=== PATIENT | female | born 1960 ===

== ENCOUNTER 2023-03-31 15:02 | Outpatient (REF) | payer OTHER, SELFPAY ==
[2023-03-31 16:15] LABS: MANUAL DIFF FLAG NO
[2023-03-31 16:44] LABS: Basophils Absolute Auto 0.1 X10*3/uL (0.0-0.2); Basophils Percent Auto 0.5 % (0-2); Eosinophils Absolute Auto 0.1 X10*3/uL (0.0-0.4); Eosinophils Percent Auto 0.6 % (0-4); Hematocrit 40.8 % (37.0-47.0); Hemoglobin 13.2 g/dl (12.0-16.0); Imm Gran Abs Auto 0.04 X10*3/uL (0.00-0.03); Imm Gran Pct Auto 0.4 % (0.0-0.4); Lymphocytes Absolute Auto 0.7 X10*3/uL (1.2-4.9); Lymphocytes Percent Auto 6.9 % (20-40); Mean Corpuscular HGB Conc 32.4 g/dl (31.0-35.0); Mean Corpuscular Hemoglobin 28.6 pg (27.0-33.0); Mean Corpuscular Volume 88.3 fL (80.0-98.0); Mean Platelet Volume 11.9 fL (9.4-12.3); Monocytes Percent Auto 9.3 % (2-11); Neutrophils Absolute Auto 8.5 x10*3/uL (2.0-8.3); Neutrophils Percent Auto 82.3 % (45-73); Platelet Count 276 X10*3/uL (160-400); Red Blood Count 4.62 X10*6/uL (4.20-5.50); Red Cell Distribution Width 17.3 % (11.0-16.0); White Blood Count 10.3 X10*3/uL (4.8-10.8)
[2023-03-31 17:25] LABS: Erythrocyte Sedimentation Rate 7 MM/HR (0-20)
[2023-03-31 17:29] LABS: Anion Gap 12 (12-20); Blood Urea Nitrogen 11 mg/dL (9-16); Calcium 9.7 mg/dL (8.4-10.2); Carbon Dioxide 28 mmol/L (22-29); Chloride 104 mmol/L (96-108); Estimated Glomerular Filt Rate > 60; Glucose Random 104 mg/dL (60-115); Potassium 3.7 mmol/L (3.3-5.1); Sodium 140 mmol/L (135-145)
[2023-04-02 04:38] LABS: Immunoglobulin E 17 kU/L (<OR=114)
[2023-04-02 11:32] LABS: Cyclic Citrullinated Peptide <16 UNITS
[2023-04-02 13:23] LABS: Myeloperoxidase Antibody <1.0 AI; Proteinase 3 PR3 Antibodies <1.0 AI
[2023-04-02 15:48] LABS: Anti Nuclear Antibody Screen NEGATIVE (NEGATIVE)
[2023-04-06 16:24] LABS: Asperg fumigatus Precip Abs NEGATIVE (NEGATIVE); Micropoly faeni Abs NEGATIVE (NEGATIVE); Pigeon serum Abs POSITIVE (NEGATIVE); Saccharo pora viridis Abs NEGATIVE (NEGATIVE); Thermo candidus Abs NEGATIVE (NEGATIVE); Thermoa vulgaris #1 NEGATIVE (NEGATIVE)
== END 2023-03-31 15:03 | disposition home or self-care (01) ==
LOC: HO.LAB 15:02
PROVIDERS: Visit Provider Hospitalist
DX: J84.9 Interstitial pulmonary disease, unspecified (principal); R91.8 Other nonspecific abnormal finding of lung field; I34.1 Nonrheumatic mitral (valve) prolapse; J30.9 Allergic rhinitis, unspecified; R06.2 Wheezing
CPT/HCPCS: 36415; 80048; 82785; 85025; 85652; 86003; 86021; 86038; 86200; 86331; 86606; 86609; 94618

== ENCOUNTER 2023-03-31 15:02 | Outpatient (AMB) | payer OTHER, SELFPAY ==
[2023-03-31 15:09] VITALS: BP 118/60; PULSE 92; O2SAT 94; BMI 16.6
--- NOTE | 2023-03-31 15:09 | MHC.OFFVIS ---
Intake Vital Signs 03/31/23 15:09 Height 5 ft 8 in Weight 109 lb BMI 16.6 BP 118/60 Blood Pressure Location Lt brachial Position Sitting Pulse 92 Pulse Source Pulse Oximeter Pulse Oximetry (%) 94 Oxygen Delivery Method Room Air Intake Visit Reasons: ILD Dietitian Assistant Required: No Allergies Contrast Dye Adverse Reaction (Severe, Uncoded 03/31/23 15:13) Anaphylaxis HPI HPI Comments History of Present Illness Details The patient is here for pulmonary evaluation. The patient is a 63 year woman who was previously healthy until the last several months which she started developing increasing progressive dyspnea in addition to nonproductive cough. The symptoms she thought initially related to allergies and she continued to perform her activities of daily living. Ultimately his symptoms worsened. She did follow-up with her primary care doctor who sent her for a CT scan of the chest that she had at [facility]. demonstrated diffuse ground-glass opacities suggesting pneumonitis. Ultimately her symptoms worsened in her primary care doctor suggested she go to the ER. She went to [facility] where she was admitted to the hospital with acute respiratory failure. The patient did have an elevated brain atretic peptide and therefore underwent an echocardiogram demonstrating mitral valve prolapse. She was placed on oxygen. She was placed on Solu-Medrol quickly improved. The repeat CT scan there was suggestive of acute hypersensitivity pneumonitis. As far as exposures she does have 2 parakeets and also a dove that she has been nursing back to health. In addition to that she does have a very she may basement. Denies any musty smells. She denies any smoking or vaping. She was discharged from the hospital and was given a slow prednisone taper. Now she is been off the prednisone since February. She is been noticing that when she goes outside to do the [employer] [place] she started developing a cough and also has been noticing increasing chest tightness. She is concerned that her symptoms are coming back. We did review her CT scan of the chest demonstrating extensive ground-glass opacities throughout. She does have some areas of sparing. Also noted to have some scarring at the bases but no honeycombing. During the visit we did go for brief walking oximetry. The patient initially did desaturate down to about 89 % with activity. However she was talking. I did have her take some deep breaths and ambulate and she was able to maintain a pulse ox of 93% with activity. This is still low but at least she does not qualify for oxygen. Although she is been healthy from a respiratory status. Back in August she did have sinusitis that was the time that she took in the injured dove into the house. She is wondering if it could be related to an illness from the bird. Patient understands and she is been told that the birds do carry increased then there in some people become very hypersensitive to birds which is an issue of concern specially with the progression of fibrosis. will go ahead and start the patient inhaled cortical steroids to see if this provides some relief. Although may not be enough. The patient also have pulmonary function studies and have her repeat a chest x-ray. The patient will undergo blood work and then returned for further evaluation. If her symptoms happened to worsen and she needs to make sure to call for an earlier assessment. [facility] Medical History (Updated 03/31/23 @ 23:13 by Carlton Nobles MD) Mitral valve prolapse ILD (interstitial lung disease) Pneumonitis Social History (Updated 03/31/23 @ 15:14 by DILIP Pratt) Patient Tobacco Use Status: Never used Tobacco Review of Systems Const Denies fatigue and Denies fever(s) Eyes Denies change in vision ENT Reports nasal congestion Card Denies chest pain and Reports dyspnea on exertion Resp Reports cough, Reports dyspnea on exertion and Denies wheezing GI Denies abdominal pain Musc Reports no additional complaints Skin/Breast Denies rash Neuro Reports no additional complaints Endo Denies fatigue Amando/Lymph Denies lymphadenopathy Aller/Immun Denies wheezing Physical Exam Vital Signs: Last Vital Signs Pulse 92 03/31/23 15:09 BP 118/60 03/31/23 15:09 Pulse Ox 94 03/31/23 15:09 Oxygen Delivery Method Room Air 03/31/23 15:09 BMI result Body Mass Index 16.6 Const General: comfortable HEENT Head: Yes normocephalic Neck Neck: Yes supple Chest Chest palpation & inspection: normal inspection of the chest Resp Effort & Inspection: normal respiratory effort Auscultation: rales on the right (fine rales at the end of inspiration) in the mid lung pike and diminished lung sounds Cardio Rate: regular rate Rhythm: regular rhythm Heart sounds: S1 normal heart sound present, S2 normal heart sound present and no murmurs GI Palpation (GI): Soft to palpation Skin General skin exam: no rashes or lesions noted Extrem General: Yes no clubbing, cyanosis or edema Office Procedures 6 Minute Walk Time:: 23:13 SPO2 % at rest: 96 Pulse at rest: 89 SPO2 % during excercise: 89 Pulse during excercise: 93 Distance in yards walked: 300 Christie Score: 4 [id number] - 6 Minute Walk Assessment & Plan Assessment & Plan (1) Pneumonitis: Code(s): J18.9 - Pneumonia, unspecified organism (2) ILD (interstitial lung disease): Code(s): J84.9 - Interstitial pulmonary disease, unspecified (3) Mitral valve prolapse: Code(s): I34.1 - Nonrheumatic mitral (valve) prolapse Plan Bloodwork/ allergy testing Minimize exposure to the birds for now start flovent HFA, may need addiiotnal prednisone if not effective PFTs/CXR F/U with PCP or Cardiology regarding the valvular disease F/U 4 weeks Orders: Orders Complete Blood Count Auto Diff Today J18.9 - Pneumonia, unspecified organism [place] Reflex Titer and Pattern Today J18.9 - Pneumonia, unspecified organism Hypersensitive Pneumonitis Prf Today J18.9 - Pneumonia, unspecified organism, R91.8 - Other nonspecific abnormal finding of lung field PFT pulmonary function test Today J18.9 - Pneumonia, unspecified organism XR chest 2V Today J18.9 - Pneumonia, unspecified organism Basic Metabolic Panel Today J18.9 - Pneumonia, unspecified organism ANCA Vasculitides Today J18.9 - Pneumonia, unspecified organism Cyclic Citrullinated Peptide Today J18.9 - Pneumonia, unspecified organism Erythrocyte Sedimentation Rate Today J18.9 - Pneumonia, unspecified organism Immunoglobulin E Today J18.9 - Pneumonia, unspecified organism Rast Allergen Today J18.9 - Pneumonia, unspecified organism Medications: New fluticasone propionate 220 mcg/actuation (Flovent HFA) 1 puff inhalation BID 12 grams 6RF 30 days J18.9 - Pneumonia, unspecified organism inhalational spacing device (Aerochamber MV spacer) As directed 1 ea 0RF J18.9 - Pneumonia, unspecified organism Coding Level of Care Code New Pt Level 5 (27503) Diagnoses Pneumonitis J18.9 ILD (interstitial lung disease) J84.9 Mitral valve prolapse I34.1 CPT Codes Coding ([id number]) Time Spent (min) 60
[2023-03-31 23:12] VITALS: PULSE 89; O2SAT 96
== END 2023-03-31 15:58 | disposition home or self-care (01) ==
PROVIDERS: Visit Provider Hospitalist
DX: J84.9 Interstitial pulmonary disease, unspecified (principal); I34.1 Nonrheumatic mitral (valve) prolapse
CPT/HCPCS: 94618; 99205

== ENCOUNTER 2023-05-02 14:37 | Outpatient (REF) | payer OTHER, SELFPAY ==
--- NOTE | 2023-05-02 16:38 | PFT_ITS ---
Forced vital capacity 84%, FEV1 89%, FEV1/FVC ratio is 82. XEP80-88 126% and MVV is 95%. Post bronchodilator therapy, there is no significant change. Total lung capacity 74%. Residual volume 65%. Diffusion capacity is 46%. DL/VA 59%. CONCLUSION: There is evidence of mild restrictive pulmonary disorder. No obstructive airway disorder. Diffusion capacity is markedly decreased, sort of out of proportion to the spirometry findings and lung volumes. This may be due to pulmonary emphysema, nonpulmonary factors such as pulmonary vascular disease. Clinical correlation is recommended. Galileo St MD MSB/MODL / [id number]
== END 2023-05-02 14:38 | disposition home or self-care (01) ==
LOC: HO.RESP 14:37
PROVIDERS: Visit Provider Hospitalist
DX: J18.9 Pneumonia, unspecified organism (principal)
CPT/HCPCS: 94010; 94727; 94729

== ENCOUNTER → 2023-05-02 16:38 | Outpatient (BNV) | payer OTHER, SELFPAY | PROVIDERS: Visit Provider Internal Medicine | DX: J18.9 Pneumonia, unspecified organism (principal) | CPT/HCPCS: 94060; 94727; 94729 ==

== ENCOUNTER 2023-05-12 15:39 | Outpatient (AMB) | payer OTHER, SELFPAY ==
[2023-05-12 15:41] VITALS: BP 138/67; PULSE 92; O2SAT 94; BMI 16.1
--- NOTE | 2023-05-12 15:41 | A.OFFVIS_ITS ---
Intake Vital Signs 05/12/23 15:41 Height 5 ft 8 in Weight 105 lb 13.15 oz BMI 16.1 BP 138/67 Blood Pressure Location Rt brachial Position Sitting Pulse 92 Pulse Source Doppler Pulse Oximetry (%) 94 Oxygen Delivery Method Room Air Intake Visit Reasons: ILD Allergies Contrast Dye Adverse Reaction (Severe, Uncoded 03/31/23 15:13) Anaphylaxis HPI HPI Comments History of Present Illness Details The patient is a 63 year woman who was previously healthy until the last several months which she started developing increasing progressive dyspnea in addition to nonproductive cough. The symptoms she thought initially related to allergies and she continued to perform her activities of daily living. Ultimately his symptoms worsened. She did follow-up with her primary care doctor who sent her for a CT scan of the chest that she had at [facility]. demonstrated diffuse ground-glass opacities suggesting pneumonitis. Ultimately her symptoms worsened in her primary care doctor suggested she go to the ER. She went to [facility] where she was admitted to the hospital with acute respiratory failure. The patient did have an elevated brain atretic peptide and therefore underwent an echocardiogram demonstrating mitral valve prolapse. She was placed on oxygen. She was placed on Solu-Medrol quickly improved. The repeat CT scan there was suggestive of acute hypersensitivity pneumonitis. As far as exposures she does have 2 parakeets and also a dove that she has been nursing back to health. In addition to that she does have a very she may basement. Denies any musty smells. She denies any smoking or vaping. She was discharged from the hospital and was given a slow prednisone taper. Now she is been off the prednisone since February. 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 She is concerned that her symptoms are coming back. We did review her CT scan of the chest demonstrating extensive ground-glass opacities throughout. She does have some areas of sparing. Also noted to have some scarring at the bases but no honeycombing. During the visit we did go for brief walking oximetry. The patient initially did desaturate down to about 89 % with activity. However she was talking. I did have her take some deep breaths and ambulate and she was able to maintain a pulse ox of 93% with activity. This is still low but at least she does not qualify for oxygen. Although she is been healthy from a respiratory status. Back in August she did have sinusitis that was the time that she took in the injured dove into the house. She is wondering if it could be related to an illness from the bird. Patient understands and she is been told that the birds do carry increased then there in some people become very hypersensitive to birds which is an issue of concern specially with the progression of fibrosis. will go ahead and start the patient inhaled cortical steroids to see if this provides some relief. Although may not be enough. The patient also have pulmonary function studies and have her repeat a chest x-ray. The patient will undergo blood work and then returned for further evaluation. If her symptoms happened to worsen and she needs to make sure to call for an earlier assessment. 05/12/2023 the patient is here for a pul monary follow-up visit. The prednisone did help her. Now she weaned off. She did undergo pulmonary function studies which we personally reviewed. For some apparent reason appears that the bronchodilator numbers were actually worsen the pre bronchodilator numbers. She appears to have significant small airways disease during the post bronchodilator evaluation. Therefore, I did recommend she avoid using the albuterol inhaler for now on to wean off for sure. She does use the QVAR daily. In addition to that she does have evidence of a mild restrictive lung disease and also evidence of a moderate diffusion impairment. Explained to her that this is all related to the hyper since the pneumonitis resulting from the patient. She still has the patient. She is looking to relocate the patient with separate space. Still being exposed to on the regular basis. She also has parakeets but she is at [place] most of her life. The patient will up her QVAR to twice a day. If she continues to have symptoms she will call me and I will send another course of low-dose prednisone to minimize the inflammatory changes. The patient will also undergo a chest x-ray. Will follow-up in 3 months. [facility] Medical History (Updated 03/31/23 @ 23:13 by Carlton Nobles MD) Mitral valve prolapse ILD (interstitial lung disease) Pneumonitis Social History Patient Tobacco Use Status: Never used Tobacco Review of Systems Const Denies fatigue and Denies fever(s) Eyes Denies change in vision ENT Reports nasal congestion Card Denies chest pain and Reports dyspnea on exertion Resp Reports cough, Reports dyspnea on exertion and Denies wheezing GI Denies abdominal pain Musc Reports no additional complaints Skin/Breast Denies rash Neuro Reports no additional complaints Endo Denies fatigue Amando/Lymph Denies lymphadenopathy Aller/Immun Denies wheezing Physical Exam Vital Signs: Last Vital Signs Pulse 92 05/12/23 15:41 BP 138/67 05/12/23 15:41 Pulse Ox 94 05/12/23 15:41 Oxygen Delivery Method Room Air 05/12/23 15:41 BMI result Body Mass Index 16.1 Const General: comfortable HEENT Head: Yes normocephalic Neck Neck: Yes supple Chest Chest palpation & inspection: normal inspection of the chest Resp Effort & Inspection: normal respiratory effort Auscultation: no rales and diminished lung sounds Cardio Rate: regular rate Rhythm: regular rhythm Heart sounds: S1 normal heart sound present, S2 normal heart sound present and no murmurs GI Palpation (GI): Soft to palpation Skin General skin exam: no rashes or lesions noted Extrem General: Yes no clubbing, cyanosis or edema Results Reviewed Results Reviewed: [address] [address] Pulmonary Function Report Draft Patient: Gabriela Truong MR#: [id number] : 1960 Acct:[id number] Age/Sex: 63 / F ADM Date: 05/02/23 Loc: HO.RESP Attending Dr: Carlton Nobles MD Ordering Physician: Carlton Nobles MD Date of Service: 05/02/23 Procedure(s): PFT pulmonary function test Accession Number(s): [id number] cc: ~ Forced vital capacity 84%, FEV1 89%, FEV1/FVC ratio is 82. VTU09-53 126% and MVV is 95%. Post bronchodilator therapy, there is no significant change. Total lung capacity 74%. Residual volume 65%. Diffusion capacity is 46%. DL/VA 59%. CONCLUSION: There is evidence of mild restrictive pulmonary disorder. No obstructive airway disorder. Diffusion capacity is markedly decreased, sort of out of proportion to the spirometry findings and lung volumes. This may be due to pulmonary emphysema, nonpulmonary factors such as pulmonary vascular disease. Clinical correlation is recommended. Galileo St MD MSB/MODL / [id number] Dictated By: Galileo St MD Signed By: DD/ 1152 TD/TT: 05/03/23 1215 Content Strategist: Assessment & Plan Assessment & Plan (1) Pneumonitis: Code(s): J18.9 - Pneumonia, unspecified organism (2) ILD (interstitial lung disease): Code(s): J84.9 - Interstitial pulmonary disease, unspecified (3) Mitral valve prolapse: Code(s): I34.1 - Nonrheumatic mitral (valve) prolapse Plan Avoid exposure to the birds for now Increase QVAR daily to BID If no better in 2 weeks, will call to restart small low dose prednisone CXR F/U with PCP or Cardiology regarding the valvular disease F/U 8-12 weeks Coding Level of Care Code Est Pt Level 4 (74973) Diagnoses Pneumonitis J18.9 ILD (interstitial lung disease) J84.9 Mitral valve prolapse I34.1 Time Spent (min) 18
== END 2023-05-12 16:24 | disposition home or self-care (01) ==
PROVIDERS: Visit Provider Hospitalist
DX: J84.9 Interstitial pulmonary disease, unspecified (principal); I34.1 Nonrheumatic mitral (valve) prolapse
CPT/HCPCS: 99214

== ENCOUNTER → 2023-05-12 15:39 | Outpatient (BNVA) | payer OTHER, SELFPAY | PROVIDERS: Visit Provider Hospitalist | DX: J18.9 Pneumonia, unspecified organism (principal) ==

== ENCOUNTER 2023-08-11 15:32 | Outpatient (AMB) | payer OTHER, SELFPAY ==
[2023-08-11 15:37] VITALS: PULSE 90; O2SAT 94; BMI 16.1
--- NOTE | 2023-08-11 15:37 | A.OFFVIS_ITS ---
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 The symptoms she thought initially related to allergies and she continued to perform her activities of daily living. Ultimately his symptoms worsened. She did follow-up with her primary care doctor who sent her for a CT scan of the chest that she had at [facility]. demonstrated diffuse ground-glass opacities suggesting pneumonitis. Ultimately her symptoms worsened in her primary care doctor suggested she go to the ER. She went to [facility] where she was admitted to the hospital with acute respiratory failure. The patient did have an elevated brain atretic peptide and therefore underwent an echocardiogram demonstrating mitral valve prolapse. She was placed on oxygen. She was placed on Solu-Medrol quickly improved. The repeat CT scan there was suggestive of acute hypersensitivity pneumonitis. As far as exposures she does have 2 parakeets and also a dove that she has been nursing back to health. In addition to that she does have a very she may basement. Denies any musty smells. She denies any smoking or vaping. She was discharged from the hospital and was given a slow prednisone taper. Now she is been off the prednisone since February. She is been noticing that when she goes outside to do the [employer] she started developing a cough and also has been noticing increasing chest tightness. She is concerned that her symptoms are coming back. We did review her CT scan of the chest demonstrating extensive ground-glass opacities throughout. She does have some areas of sparing. Also noted to have some scarring at the bases but no honeycombing. During the visit we did go for brief walking oximetry. The patient initially did desaturate down to about 89 % with activity. However she was talking. I did have her take some deep breaths and ambulate and she was able to maintain a pulse ox of 93% with activity. This is still low but at least she does not qualify for oxygen. Although she is been healthy from a respiratory status. Back in August she did have sinusitis that was the time that she took in the injured dove into the house. She is wondering if it could be related to an illness from the bird. Patient understands and she is been told that the birds do carry increased then there in some people become very hypersensitive to birds which is an issue of concern specially with the progression of fibrosis. will go ahead and start the patient inhaled cortical steroids to see if this provides some relief. Although may not be enough. The patient also have pulmonary function studies and have her repeat a chest x-ray. The patient will undergo blood work and then returned for further evaluation. If her symptoms happened to worsen and she needs to make sure to call for an earlier assessment. 05/12/2023 the patient is here for a pul monary follow-up visit. The prednisone did help her. Now she weaned off. She did undergo pulmonary function studies which we personally reviewed. For some apparent reason appears that the bronchodilator numbers were actually worsen the pre bronchodilator numbers. She appears to have significant small airways disease during the post bronchodilator evaluation. Therefore, I did recommend she avoid using the albuterol inhaler for now on to wean off for sure. She does use the QVAR daily. In addition to that she does have evidence of a mild restrictive lung disease and also evidence of a moderate diffusion impairment. Explained to her that this is all related to the hyper since the pneumonitis resulting from the patient. She still has the patient. She is looking to relocate the patient with separate space. Still being exposed to on the regular basis. She also has parakeets but she is at [place] most of her life. The patient will up her QVAR to twice a day. If she continues to have symptoms she will call me and I will send another course of low-dose prednisone to minimize the inflammatory changes. The patient will also undergo a chest x-ray. Will follow-up in 3 months. 08/11/2023 the patient is here for a pulmonary follow-up visit. The prednisone did help her significantly. Although now she is off the prednisone her symptoms getting worse. She does not feel the QVAR is hopeful. The patient unfortunately continues have the exposure to the Dove. She also has 2 parakeets. She has a hard time giving way or relocating the birds specially since the very center mental to her and 1 of them is handicapped. 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 The patient states since she can not give of the birds until likely late spring or summer. We again emphasized the need for her to use a respirator working or around the birds. She should keep him 1 area and she should also have a air. the patient understands that if the inflammation persist he can lead to potential fibrosis. Therefore she is agreeable to stay in a small dose of prednisone. I did recommend 20 mg for about 7 days and then hopefully she can taper down to 10 mg for 2 weeks, then, patient can try half a tablet if is the lowest most effective dose. If not she should continue on the 10 mg tablet will follow-up with a CT scan in the coming months. And she will follow-up after the CAT scan to review the CT scan and to assess her symptoms. [facility] Medical History (Updated 08/11/23 @ 20:50 by Carlton Nobles MD) Bird breeder's lung Mitral valve prolapse ILD (interstitial lung disease) Pneumonitis Social History Patient Tobacco Use Status: Never used Tobacco Review of Systems Const Denies fatigue and Denies fever(s) Eyes Denies change in vision ENT Reports nasal congestion Card Denies chest pain and Reports dyspnea on exertion Resp Reports cough, Reports dyspnea on exertion and Denies wheezing GI Denies abdominal pain Musc Reports no additional complaints Skin/Breast Denies rash Neuro Reports no additional complaints Endo Denies fatigue Amando/Lymph Denies lymphadenopathy Aller/Immun Denies wheezing Physical Exam Vital Signs: Last Vital Signs Pulse 90 08/11/23 15:37 Pulse Ox 94 08/11/23 15:37 Oxygen Delivery Method Room Air 08/11/23 15:37 BMI result Body Mass Index 16.1 Const General: comfortable HEENT Head: Yes normocephalic Neck Neck: Yes supple Chest Chest palpation & inspection: normal inspection of the chest Resp Effort & Inspection: normal respiratory effort Auscultation: rales and diminished lung sounds Cardio Rate: regular rate Rhythm: regular rhythm Heart sounds: S1 normal heart sound present, S2 normal heart sound present and no murmurs GI Palpation (GI): Soft to palpation Skin General skin exam: no rashes or lesions noted Extrem General: Yes no clubbing, cyanosis or edema Assessment & Plan Assessment & Plan (1) Pneumonitis: Code(s): J18.9 - Pneumonia, unspecified organism (2) ILD (interstitial lung disease): Code(s): J84.9 - Interstitial pulmonary disease, unspecified (3) Mitral valve prolapse: Code(s): I34.1 - Nonrheumatic mitral (valve) prolapse (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 The patient is not ready to relocate the birds. She will use a repirator around them and use an air purifier in the mean time stop QVAR daily to BID start prednisone 20mg and will taper down to lowest most effective dose repeat CT chest in 2 months F/U with PCP or Cardiology regarding the valvular disease F/U 8-12 weeks Orders: Orders CT chest wo IV con 2 Months J18.9 - Pneumonia, unspecified organism Medications: New prednisone 20 mg (2 x 10 mg) PO DAILY 60 tabs 2RF 30 days Coding Level of Care Code Est Pt Level 4 (09974) Diagnoses Pneumonitis J18.9 ILD (interstitial lung disease) J84.9 Mitral valve prolapse I34.1 Bird breeder's lung J67.2 Time Spent (min) 18
== END 2023-08-11 16:15 | disposition home or self-care (01) ==
PROVIDERS: Visit Provider Hospitalist
DX: J84.9 Interstitial pulmonary disease, unspecified (principal); I34.1 Nonrheumatic mitral (valve) prolapse; J67.2 Bird fancier's lung
CPT/HCPCS: 99214

== ENCOUNTER → 2023-08-11 15:32 | Outpatient (BNVA) | payer OTHER, SELFPAY | PROVIDERS: Visit Provider Hospitalist | DX: J18.9 Pneumonia, unspecified organism (principal) ==

== ENCOUNTER 2023-10-06 16:14 | Outpatient (REF) | payer OTHER, SELFPAY ==
--- NOTE | ~2023-10-06 | CT_ITS ---
EXAMINATION: CT CHEST WITHOUT CONTRAST CLINICAL INFORMATION: Pneumonia COMPARISON: 06/02/23 chest radiograph, 01/13/[address] TECHNIQUE: Multidetector volumetric CT imaging of the chest was done. Axial MIP volume rendering provided. Sagittal and coronal reformatted images were obtained. This CT examination was performed using dose optimization techniques as appropriate, variously including the following: *Automated exposure control *Adjustment of mA and/or kV according to patient size (this includes techniques or standardized protocols for targeted exams where dose is matched to indication/reason for exam; i.e. extremities or head) *Use of iterative reconstruction technique DLP: 113 mGy-cm FINDINGS: BRASS WIND INSTRUMENT MAKER: Clear lungs LUNGS: Trachea and bronchi are patent. Diffuse groundglass opacities seen on 01/13/[address] have resolved. Scattered atelectasis. XIN subpleural granuloma, 7:98. Unchanged 2 mm RUL nodule, 7:280 and on 7:337. MEDIASTINUM: Unremarkable thyroid. Nonspecific lymph nodes. No pathologic lymphadenopathy. Nonenlarged heart. Nonaneurysmal aorta with atherosclerotic calcifications. Nonenlarged pulmonary arteries. CORONARY ARTERY CALCIFICATION: Mild PLEURA: There is no pleural effusion. No pleural mass or thickening. AXILLA: No lymphadenopathy. UPPER ABDOMEN: 5 mm nonobstructing left mid pole renal calculus. OSSEOUS STRUCTURES: Unremarkable. CT/CT chest wo IV con IMPRESSION: Resolution bilateral groundglass opacities. No change tiny pulmonary nodules for which no further follow-up necessarily recommended. No new or enlarging pulmonary nodules. 5 mm nonobstructing left midpole renal calculus. Fleischner guidelines were followed.
== END 2023-10-06 16:15 | disposition home or self-care (01) ==
LOC: HO.CT 16:14
PROVIDERS: Visit Provider Hospitalist
DX: J18.9 Pneumonia, unspecified organism (principal)
CPT/HCPCS: 71250

== ENCOUNTER 2023-12-19 14:23 | Outpatient (AMB) | payer OTHER, SELFPAY ==
--- NOTE | 2023-12-19 14:29 | MHC.OFFVIS ---
Vital Signs 12/19/23 14:30 Height 5 ft 8 in Weight 114 lb BMI 17.3 Pulse 81 Pulse Source Pulse Oximeter Pulse Oximetry (%) 94 Oxygen Delivery Method Room Air Intake Visit Reasons: dyspnea Gang Supervisor Required: No Allergies Contrast Dye Adverse Reaction (Severe, Uncoded 12/19/23 14:31) Anaphylaxis HPI Comments Details: The patient is a 63 year woman who was previously healthy until the last several months which she started developing increasing progressive dyspnea in addition to nonproductive cough. The symptoms she thought initially related to allergies and she continued to perform her activities of daily living. Ultimately his symptoms worsened. She did follow-up with her primary care doctor who sent her for a CT scan of the chest that she had at [facility]. demonstrated diffuse ground-glass opacities suggesting pneumonitis. Ultimately her symptoms worsened in her primary care doctor suggested she go to the ER. She went to [facility] where she was admitted to the hospital with acute respiratory failure. The patient did have an elevated brain atretic peptide and therefore underwent an echocardiogram demonstrating mitral valve prolapse. She was placed on oxygen. She was placed on Solu-Medrol quickly improved. The repeat CT scan there was suggestive of acute hypersensitivity pneumonitis. As far as exposures she does have 2 parakeets and also a dove that she has been nursing back to health. In addition to that she does have a very she may basement. Denies any musty smells. She denies any smoking or vaping. She was discharged from the hospital and was given a slow prednisone taper. Now she is been off the prednisone since February. She is been noticing that when she goes outside to do the [place] she started developing a cough and also has been noticing increasing chest tightness. She is concerned that her symptoms are coming back. We did review her CT scan of the chest demonstrating extensive ground-glass opacities throughout. She does have some areas of sparing. Also noted to have some scarring at the bases but no honeycombing. During the visit we did go for brief walking oximetry. The patient initially did desaturate down to about 89 % with activity. However she was talking. I did have her take some deep breaths and ambulate and she was able to maintain a pulse ox of 93% with activity. This is still low but at least she does not qualify for oxygen. Although she is been healthy from a respiratory status. Back in August she did have sinusitis that was the time that she took in the injured dove into the house. She is wondering if it could be related to an illness from the bird. Patient understands and she is been told that the birds do carry increased then there in some people become very hypersensitive to birds which is an issue of concern specially with the progression of fibrosis. will go ahead and start the patient inhaled cortical steroids to see if this provides some relief. Although may not be enough. The patient also have pulmonary function studies and have her repeat a chest x-ray. The patient will undergo blood work and then returned for further evaluation. If her symptoms happened to worsen and she needs to make sure to call for an earlier assessment. 05/12/2023 the patient is here for a pulmonary follow-up visit. The prednisone did help her. Now she weaned off. She did undergo pulmonary function studies which we personally reviewed. For some apparent reason appears that the bronchodilator numbers were actually worsen the pre bronchodilator numbers. She appears to have significant small airways disease during the post bronchodilator evaluation. Therefore, I did recommend she avoid using the albuterol inhaler for now on to wean off for sure. She does use the QVAR daily. In addition to that she does have evidence of a mild restrictive lung disease and also evidence of a moderate diffusion impairment. Explained to her that this is all related to the hyper since the pneumonitis resulting from the patient. She still has the patient. She is looking to relocate the patient with separate space. Still being exposed to on the regular basis. She also has parakeets but she is at [facility] most of her life. The patient will up her QVAR to twice a day. If she continues to have symptoms she will call me and I will send another course of low-dose prednisone to minimize the inflammatory changes. The patient will also undergo a chest x-ray. Will follow-up in 3 months. 08/11/2023 the patient is here for a pulmonary follow-up visit. The prednisone did help her significantly. Although now she is off the prednisone her symptoms getting worse. She does not feel the QVAR is hopeful. The patient unfortunately continues have the exposure to the Dove. She also has 2 parakeets. She has a hard time giving way or relocating the birds specially since the very center mental to her and 1 of them is handicapped. 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 The patient states since she can not give of the birds until likely late spring or summer. We again emphasized the need for her to use a respirator working or around the birds. She should keep him 1 area and she should also have a air. the patient understands that if the inflammation persist he can lead to potential fibrosis. Therefore she is agreeable to stay in a small dose of prednisone. I did recommend 20 mg for about 7 days and then hopefully she can taper down to 10 mg for 2 weeks, then, patient can try half a tablet if is the lowest most effective dose. If not she should continue on the 10 mg tablet will follow-up with a CT scan in the coming months. And she will follow-up after the CAT scan to review the CT scan and to assess her symptoms. 12/19/2023 the patient is here for a pulmonary follow-up visit. The patient was fairly well until she was exposed to significant amount of patient droppings and then there. Apparently she was evaluating home for her patient when the patient was exposed to an open cage with significant amount of dander. After that she started developing some chest tightness heaviness and chest congestion. She felt the crackles in the crepitations of her lungs. She did call the office in the patient ultimately started prednisone. Although the prednisone help with her breathing cause her some GI adverse effects some reflux symptoms and some GI upset. The patient now is taking prednisone 10 mg daily. Seems like the crepitations are significantly better. Although, she is concerned about lowering of the lungs. The patient is motivated to find a home for the patient. In the meantime we will try to decrease prednisone some specially since her respiratory exam is reassuring. She still has some minimal crackles in the right base. We can try to decrease it to 10 mg every other day to try to minimize some of the GI adverse effects. [facility]. She did have a CT scan back in September which is reassuring so therefore believe that we need to do any additional imaging right now. In addition to the chest tightness the patient did describe some congestion. Therefore would not be unreasonable just to treat her for psittacosis with some doxycycline. [facility], [facility] Medical History (Updated 08/11/23 @ 20:50 by Carlton Nobles MD) Bird breeder's lung Mitral valve prolapse ILD (interstitial lung disease) Pneumonitis Social History Patient Tobacco Use Status: Never used Tobacco Review of Systems Const Denies fatigue and Denies fever(s) Eyes Denies change in vision ENT Reports nasal congestion Card Denies chest pain and Reports dyspnea on exertion Resp Reports cough, Reports dyspnea on exertion and Denies wheezing GI Denies abdominal pain Musc Reports no additional complaints Skin/Breast Denies rash Neuro Reports no additional complaints Endo Denies fatigue Amando/Lymph Denies lymphadenopathy Aller/Immun Denies wheezing Physical Exam Vital Signs: Last Vital Signs Pulse 81 12/19/23 14:30 Pulse Ox 94 12/19/23 14:30 Oxygen Delivery Method Room Air 12/19/23 14:30 BMI result Body Mass Index 17.3 Const General: comfortable HEENT Head: Yes normocephalic Neck Neck: Yes supple Chest Chest palpation & inspection: normal inspection of the chest Resp Effort & Inspection: normal respiratory effort Auscultation: rales and diminished lung sounds Cardio Rate: regular rate Rhythm: regular rhythm Heart sounds: S1 normal heart sound present, S2 normal heart sound present and no murmurs GI Palpation (GI): Soft to palpation Skin General skin exam: no rashes or lesions noted Extrem General: Yes no clubbing, cyanosis or edema Assessment & Plan Assessment & Plan (1) Pneumonitis: Code(s): J18.9 - Pneumonia, unspecified organism Category: Medical (2) ILD (interstitial lung disease): Code(s): J84.9 - Interstitial pulmonary disease, unspecified Category: Medical (3) Mitral valve prolapse: Code(s): I34.1 - Nonrheumatic mitral (valve) prolapse Category: Medical (4) Bird breeder's lung: Code(s): J67.2 - Bird fancier's lung Category: Medical Plan Avoid exposure to the birds. The patient is not ready to relocate the birds. She will use a repirator around them and use an air purifier in the mean time stopped QVAR decrease prednisone 10mg QOD start Doxycycline start PEpcid as needed F/U with PCP or Cardiology regarding the valvular disease F/U 8-12 weeks Medications: New doxycycline hyclate 100 mg PO BID 28 caps 0RF 14 days famotidine (Pepcid) 40 mg PO BEDTIME 30 tabs 2RF 30 days Coding Level of Care Code Est Pt Level 4 (60251) Diagnoses Pneumonitis J18.9 ILD (interstitial lung disease) J84.9 Mitral valve prolapse I34.1 Bird breeder's lung J67.2 Time Spent (min) 17
[2023-12-19 14:30] VITALS: PULSE 81; O2SAT 94; BMI 17.3
== END 2023-12-19 14:54 | disposition home or self-care (01) ==
PROVIDERS: Visit Provider Hospitalist
DX: J18.9 Pneumonia, unspecified organism (principal); I34.1 Nonrheumatic mitral (valve) prolapse
CPT/HCPCS: 99214

== ENCOUNTER → 2023-12-19 14:23 | Outpatient (BNVA) | payer OTHER, SELFPAY | PROVIDERS: Visit Provider Hospitalist ==

== ENCOUNTER 2024-04-23 14:47 | Outpatient (AMB) | payer OTHER, SELFPAY ==
[2024-04-23 14:54] VITALS: BP 128/70; PULSE 61; O2SAT 96; BMI 17.5
--- NOTE | 2024-04-23 14:54 | MHC.OFFVIS ---
Vital Signs 04/23/24 14:54 Height 5 ft 8 in Weight 114 lb 13.773 oz BMI 17.5 BP 128/70 Blood Pressure Location Lt brachial Position Sitting Pulse 61 Pulse Source Pulse Oximeter Pulse Oximetry (%) 96 Oxygen Delivery Method Room Air Intake Visit Reasons: Dyspnea Geological Scout Required: No Allergies Contrast Dye Adverse Reaction (Severe, Uncoded 04/23/24 14:56) Anaphylaxis HPI Comments Details: The patient is a 64 year woman who was previously healthy until the last several months which she started developing increasing progressive dyspnea in addition to nonproductive cough. The symptoms she thought initially related to allergies and she continued to perform her activities of daily living. Ultimately his symptoms worsened. She did follow-up with her primary care doctor who sent her for a CT scan of the chest that she had at [facility]. demonstrated diffuse ground-glass opacities suggesting pneumonitis. Ultimately her symptoms worsened in her primary care doctor suggested she go to the ER. She went to [facility] where she was admitted to the hospital with acute respiratory failure. The patient did have an elevated brain atretic peptide and therefore underwent an echocardiogram demonstrating mitral valve prolapse. She was placed on oxygen. She was placed on Solu-Medrol quickly improved. The repeat CT scan there was suggestive of acute hypersensitivity pneumonitis. As far as exposures she does have 2 parakeets and also a dove that she has been nursing back to health. In addition to that she does have a very she may basement. Denies any musty smells. She denies any smoking or vaping. She was discharged from the hospital and was given a slow prednisone taper. Now she is been off the prednisone since February. She is been noticing that when she goes outside to do the [employer] she started developing a cough and also has been noticing increasing chest tightness. She is concerned that her symptoms are coming back. We did review her CT scan of the chest demonstrating extensive ground-glass opacities throughout. She does have some areas of sparing. Also noted to have some scarring at the bases but no honeycombing. During the visit we did go for brief walking oximetry. The patient initially did desaturate down to about 89 % with activity. However she was talking. I did have her take some deep breaths and ambulate and she was able to maintain a pulse ox of 93% with activity. This is still low but at least she does not qualify for oxygen. Although she is been healthy from a respiratory status. Back in August she did have sinusitis that was the time that she took in the injured dove into the house. She is wondering if it could be related to an illness from the bird. Patient understands and she is been told that the birds do carry increased then there in some people become very hypersensitive to birds which is an issue of concern specially with the progression of fibrosis. will go ahead and start the patient inhaled cortical steroids to see if this provides some relief. Although may not be enough. The patient also have pulmonary function studies and have her repeat a chest x-ray. The patient will undergo blood work and then returned for further evaluation. If her symptoms happened to worsen and she needs to make sure to call for an earlier assessment. 05/12/2023 the patient is here for a pulmonary follow-up visit. The prednisone did help her. Now she weaned off. She did undergo pulmonary function studies which we personally reviewed. For some apparent reason appears that the bronchodilator numbers were actually worsen the pre bronchodilator numbers. She appears to have significant small airways disease during the post bronchodilator evaluation. Therefore, I did recommend she avoid using the albuterol inhaler for now on to wean off for sure. She does use the QVAR daily. In addition to that she does have evidence of a mild restrictive lung disease and also evidence of a moderate diffusion impairment. Explained to her that this is all related to the hyper since the pneumonitis resulting from the patient. She still has the patient. She is looking to relocate the patient with separate space. Still being exposed to on the regular basis. She also has parakeets but she is at [employer] most of her life. The patient will up her QVAR to twice a day. If she continues to have symptoms she will call me and I will send another course of low-dose prednisone to minimize the inflammatory changes. The patient will also undergo a chest x-ray. Will follow-up in 3 months. 08/11/2023 the patient is here for a pulmonary follow-up visit. The prednisone did help her significantly. Although now she is off the prednisone her symptoms getting worse. She does not feel the QVAR is hopeful. The patient unfortunately continues have the exposure to the Dove. She also has 2 parakeets. She has a hard time giving way or relocating the birds specially since the very center mental to her and 1 of them is handicapped. 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 The patient states since she can not give of the birds until likely late spring or summer. We again emphasized the need for her to use a respirator working or around the birds. She should keep him 1 area and she should also have a air. the patient understands that if the inflammation persist he can lead to potential fibrosis. Therefore she is agreeable to stay in a small dose of prednisone. I did recommend 20 mg for about 7 days and then hopefully she can taper down to 10 mg for 2 weeks, then, patient can try half a tablet if is the lowest most effective dose. If not she should continue on the 10 mg tablet will follow-up with a CT scan in the coming months. And she will follow-up after the CAT scan to review the CT scan and to assess her symptoms. 12/19/2023 the patient is here for a pulmonary follow-up visit. The patient was fairly well until she was exposed to significant amount of patient droppings and then there. Apparently she was evaluating home for her patient when the patient was exposed to an open cage with significant amount of dander. After that she started developing some chest tightness heaviness and chest congestion. She felt the crackles in the crepitations of her lungs. She did call the office in the patient ultimately started prednisone. Although the prednisone help with her breathing cause her some GI adverse effects some reflux symptoms and some GI upset. The patient now is taking prednisone 10 mg daily. Seems like the crepitations are significantly better. Although, she is concerned about lowering of the lungs. The patient is motivated to find a home for the patient. In the meantime we will try to decrease prednisone some specially since her respiratory exam is reassuring. She still has some minimal crackles in the right base. We can try to decrease it to 10 mg every other day to try to minimize some of the GI adverse effects. I also give from [facility] that she can take as needed. She did have a CT scan back in September which is reassuring so therefore believe that we need to do any additional imaging right now. In addition to the chest tightness the patient did describe some congestion. Therefore would not be unreasonable just to treat her for psittacosis with some doxycycline. 04/23/2024 the patient is here for a pulmonary follow-up visit. Overall she is doing okay from a respiratory status. She has been off the prednisone which is reassuring. The patient now does not have the patient in her home. She did place group home. She does visit the patient regularly. At times she is concerned about the care and she would like to take the patient back home. She understands however she has a very serious hypersensitivity reaction to the patient and is extremely dangerous to do so. I did reassure her that a lot of the hyper sensitivity changes are pneumonitis. No significant scarring that has evolved. We did go for brief walking oximetry today and her oxygen levels are excellent. Denies any wheezing or any significant coughing at this time. [facility] Medical History (Updated 04/26/24 @ 22:35 by Carlton Nobles MD) Pulmonary nodule Bird breeder's lung Mitral valve prolapse ILD (interstitial lung disease) Pneumonitis Social History Patient Tobacco Use Status: Never used Tobacco Review of Systems Const Denies fatigue and Denies fever(s) Eyes Denies change in vision ENT Reports nasal congestion Card Denies chest pain and Denies dyspnea on exertion Resp Reports cough, Denies dyspnea on exertion and Denies wheezing GI Denies abdominal pain Musc Reports no additional complaints Skin/Breast Denies rash Neuro Reports no additional complaints Endo Denies fatigue Amando/Lymph Denies lymphadenopathy Aller/Immun Denies wheezing Physical Exam Vital Signs: Last Vital Signs Pulse 61 04/23/24 14:54 BP 128/70 04/23/24 14:54 Pulse Ox 96 04/23/24 14:54 Oxygen Delivery Method Room Air 04/23/24 14:54 BMI result Body Mass Index 17.5 Const General: comfortable HEENT Head: Yes normocephalic Neck Neck: Yes supple Chest Chest palpation & inspection: normal inspection of the chest Resp Effort & Inspection: normal respiratory effort Auscultation: no rales and diminished lung sounds Cardio Rate: regular rate Rhythm: regular rhythm Heart sounds: S1 normal heart sound present, S2 normal heart sound present and no murmurs GI Palpation (GI): Soft to palpation Skin General skin exam: no rashes or lesions noted Extrem General: Yes no clubbing, cyanosis or edema Assessment & Plan Assessment & Plan (1) Pneumonitis: Code(s): J18.9 - Pneumonia, unspecified organism Category: Medical (2) ILD (interstitial lung disease): Code(s): J84.9 - Interstitial pulmonary disease, unspecified Category: Medical (3) Mitral valve prolapse: Code(s): I34.1 - Nonrheumatic mitral (valve) prolapse Category: Medical (4) 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 The patient is not ready to relocate the birds. She will use a repirator around them and use an air purifier in the mean time stopped QVAR stopped prednisone 10mg QOD F/U with PCP or Cardiology regarding the valvular disease CT chest in 6 months F/U 6 months Orders: Orders CT chest wo IV con 3 Months J18.9 - Pneumonia, unspecified organism, J84.9 - Interstitial pulmonary disease, unspecified, R91.1 - Solitary pulmonary nodule Coding Level of Care Code Est Pt Level 4 (09882) Complex EM visit Add On G2211 Diagnoses Pneumonitis J18.9 ILD (interstitial lung disease) J84.9 Mitral valve prolapse I34.1 Bird breeder's lung J67.2 Pulmonary nodule R91.1 Time Spent (min) 18
== END 2024-04-23 15:18 | disposition home or self-care (01) ==
PROVIDERS: Visit Provider Hospitalist
DX: J18.9 Pneumonia, unspecified organism (principal); I34.1 Nonrheumatic mitral (valve) prolapse; J67.2 Bird fancier's lung; R91.1 Solitary pulmonary nodule
CPT/HCPCS: 99214

== ENCOUNTER → 2024-04-23 14:47 | Outpatient (BNVA) | payer OTHER, SELFPAY | PROVIDERS: Visit Provider Hospitalist ==

== ENCOUNTER 2024-09-27 15:02 | Outpatient (REF) | payer OTHER, SELFPAY ==
--- NOTE | ~2024-09-27 | CT_ITS ---
CLINICAL HISTORY: R91.1 - Solitary pulmonary nodule CT chest without contrast Comparison: Chest CT from 10/06/2023 Findings: 4 mm solid pulmonary nodule (new from comparison) is in the left lower lobe imaged 141 of series 6 (category 3) Calcified nodule measures 3 mm is unchanged laterally in the left upper lobe, image 56 of series 6 (category 2). Redemonstration of the mild to moderate emphysematous changes and mild peripheral scarring. No pneumothorax or pleural effusion mild-moderate coronary artery calcifications, with mild cardiomegaly. Nonenlarged mediastinal lymphadenopathy. No significant change of the imaged upper abdomen. Degenerative changes include imaged shoulders and imaged spine. IMPRESSION: 1. Mild increase in size of the now 4 mm (141 of series 6) pulmonary nodule in the left lower lobe. Recommend six-month follow-up chest CT. 2. Mild-moderate emphysematous changes are redemonstrated This document has been electronically signed by: Jesus Kaplan MD on 09/29/2024 02:49:55
--- OUTSIDE RECORDS SUMMARY | 2024-09-27 17:35 | XMS_ITS | Data Portability ---
Author Organization [place] - [employer] [facility], autoContract - [facility] Address [address] [place] [id number] Assessment No assessment recorded. Plan of Treatment Reminders Order Date Submit Date Provider Last Modified By Organization Details Last Modified Time Details Appointments None record ed. Lab None record ed. Referral None record ed. Procedures None record ed. Surgeries None record ed. Imaging None record ed. Medication Orders None record ed. Patient TargetsNo targets recorded. Patient InstructionsNo instructions recorded. Reason for Referral None Reported. 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 Medical Equipment None Reported. Medications Name Sig Start Date Stop Date Status Note LastModified by Organization Details LastModified Time prednisone 10 mg tablet TAKE 2 TABLETS BY MOUTH DAILY FOR 30 DAYS 08/06 completed Not Available Not Available Not Available doxycycline hyclate 100 mg capsule TAKE 1 CAPSULE BY MOUTH TWICE A DAY FOR 14 DAYS 08/06 completed Not Available Not Available Not Available famotidine 40 mg tablet TAKE 1 TABLET BY MOUTH EVERYDAY AT BEDTIME 08/06 completed Not Available Not Available Not Available omeprazole 40 mg capsule,del ayed release TAKE 1 CAPSULE BY MOUTH TWICE A DAY 08/06 completed Not Available Not Available Not Available Vitals None Recorded Social History None recorded. Functional Status None recorded. Mental Status None recorded. Family History Nothing Reported. Medical History No medical history recorded. Gynecological HistoryNo gynecological history recorded. Obstetrics History GPAL:G 0 P 0 0 0 0 Immunizations Vaccine Type Date Status Note Provider Nam e and Address Organization Details Recorded Time Td (adult), 2 Lf tetanus toxoid, preservative free, adsorbed 6 completed Not Available [facility] 08/23/2024 11:41:04 Past Encounters Encounter ID Performer Location Encounter Start Date Encounter Closed Date Diagnosis/Indication Diagnosis SNOMED-CT Code Diagnosis ICD10 Code Diagnosis Note [id number] Garima Watt APRN [id number] A_PCP [address] [place] [id number] 08/06/2024 14:10:48 08/06/2024 14:50:46 Health Concerns Section Related Observation LastModified by Organization Detai ls LastModified Time None Recorded Concern Status LastModified by Organization Details LastModified Time None Recorded Advance Directives Directive None Recorded Payers Encounter Date Sequence Insurance Name Policy Number Policy Pedraza Covered Member ID Pedraza Member ID Guarantor Name 08/06/2024 1 [facility] [id number] Gabriela Dietrich Alexi [id number] Gabriela Truong OBGyn Episode No OBEpisode recorded.
--- OUTSIDE RECORDS SUMMARY | 2024-09-27 17:35 | XMS_ITS | Clinical Summary ---
Author Organization [facility] [address] [facility] Building Address [address] [place] [address] Phone Care Team Providers Care Back Shoe Operator Name Role Phone Garima Watt SENIA Primary Care Provider [phone] Allergies No known active allergies Medications nut.tx.comp. immune systm,reg (NUTRITIONAL SUPPLEMENTS PO) Take by mouth. Active omeprazole (PriLOSEC) [address] capsule TAKE 1 CAPSULE BY MOUTH EVERY DAY BEFORE A MEAL 01/18/2023 Active Active Problems Problem Noted Date Diagnosed Date Hypersensitivity pneumonitis 02/14/2023 Interstitial lung disease 02/14/2023 Immunizations Name Administration Dates Next Due Td Tetanus diptheria (Tdvax) 7yo and older 04/13 Surgical History Surgery Date Site/Laterality Comments OTHER SURGICAL HISTORY 11/06/10 PROCEDURE: HISTORICAL SUPRACERVICAL HYSTERECTOMY W/O BSO; COMMENT: Uterine fibroid, Dr. Starks COLONOSCOPY 09/05/10 PROCEDURE: HISTORICAL COLONOSCOPY; COMMENT: Hemorrhoids, repeat [address] Casey. Medical History Medical History Date Comments Hypertension 12/24/2013 DX:Hypertension; COMMENT: Echo 06/07/13, normal study with normal LV size and function and no valvular heart disease, EKG 05/07/[address] T changes, treadmill exercise test 07/05/13 negative for angina but positive by EKG criteria for ischemia without arrhythmia, good exercise capacity Nuclear stress scan 07/19/13, results not in transferred records, 05/07/13: Urinary catecholamin* Family History Medical History Relation Name Comments Hypertension Father Stroke Father Depression Mother Hypertension Mother Stroke Mother Thyroid disease Mother Thyroid disease Sister 1 Depression Sister 2 Relation Name Status Comments Father Mother Sister 1 Sister 2 Sister 3 Social History Tobacco Use Types Packs/Day Years Used Date Smoking Tobacco: Never Smokeless Tobacco: Never Alcohol Use Standard Drinks/Week Comments Yes 0 (1 standard drink = 0.6 oz pur e alcohol) Comments Unknown Sex and Gender Information Value Date Recorded Sex Assigned at Not on file Legal Sex Female 5:29 PM EST Gender Identity Not on file Sexual Orientation Not on file Obstetrics History Last Filed Vital Signs Vital Sign Reading Time Taken Comments Blood Pressure 110/74 02/14/2023 2:16 PM EDT Pulse 102 02/14/2023 2:10 PM EDT Temperature - - Respiratory Rate - - Oxygen Saturation - - Inhaled Oxygen Concentration - - Weight 49.9 kg (110 lb) 02/14/2023 2:16 PM EDT Height 172.7 cm (5' 8 ) 01/10/2023 10:32 AM EDT Body Mass Index 16.73 01/10/2023 10:32 AM EDT Plan of Treatment Upcoming Encounters Date Type Department Care Team (Late st Contact Info) Description 11/29/2024 3:00 PM EDT Office Visit Internal Medicine - [facility] [address] [place] [address] Lalita Javier PA [address] [place] [address] Health Maintenance Due Date Last Done Comments Breast Cancer Screening 1960 Pneumococcal Vaccine: 50+ Years (1 of 1 - PCV) 2009 Zoster Vaccines (1 of 2) 2009 Cervical Cancer Screening: P ap Smear 11/11/2015 11/10/2012, 11/10/2012 DTaP,Tdap,and Td Vaccines (2 - Td or Tdap) 04/13/2016 04/13/2006 Cholesterol Screening (Lipid Panel) 08/17/2023 Colorectal Cancer Screening: Colonoscopy 08/17/2023 Depression Screening 08/17/2023 Hepatitis C Screening 08/17/2023 Hypertension/CHF/CAD Annual BMP Blood Test 08/17/2023 Osteoporosis Screening (Bone Density Screening) 08/17/2023 Social Influencers of Health Screening 08/17/2023 Falls Risk Assessment 01/30/2024 COVID-19 Vaccine ( - 2023-2 5 season) 2024 Influenza Vaccine (#1) 2024 RSV Immunization Patients 60 + Years Old (1 - 1-dose 75+ series) 2034 HIB Vaccines Aged Out No longer eligi ble based on patient's age to complete this topic HPV Vaccines Aged Out No longer eligi ble based on patient's age to complete this topic Hepatitis A Vaccines Aged Out No long er eligible based on patient's age to complete this topic Hepatitis B Vaccines Aged Out No long er eligible based on patient's age to complete this topic IPV Vaccines Aged Out No longer eligi ble based on patient's age to complete this topic MMR Vaccines Aged Out No longer eligi ble based on patient's age to complete this topic Meningococcal ACWY Vaccine Aged Out N o longer eligible based on patient's age to complete this topic Meningococcal B Vacine Aged Out No lo nger eligible based on patient's age to complete this topic Pneumococcal Vaccine: Pediatrics (0 to 5 Years) and At-Risk Patients (6 to 64 Years) Aged Out No longer eligible b ased on patient's age to complete this topic RSV Immunization Patients Under 20 months Aged Out No longer eligible b ased on patient's age to complete this topic Varicella Vaccines Aged Out No longer eligible based on patient's age to complete this topic Procedures Procedure Name Priority Date/Time Associated Diagnosis Comments HPV Routine 11/10/2012 from Last 3 Months or Most Recently Relevant to Health Maintenance Results * Cervical Cancer Screening: HPV (11/10/2012) Cervical Cancer Screening: HPV No Interpretation , Abstracted Historical Provider HEALTH MAINTENANCE Final Result from Last 3 Months or Most Recently Relevant to Health Maintenance Insurance [employer] Care Teams Back Shoe Operator Relationship Specialty Start Date End Date Garima Watt NP PCP - General 01/21/23
--- OUTSIDE RECORDS SUMMARY | 2024-09-27 17:35 | XMS_ITS ---
Author Name [facility] Organization Unknown History of Medication Use Medication Directions Dispensed Refills Start Date End Date [facility] prednisone 10 mg tablet TAKE 2 TABLETS BY MOUTH DAILY FOR 30 DAYS 08/06/2024 completed famotidine 40 mg tablet TAKE 1 TABLET BY MOUTH EVERYDAY AT BEDTIME 08/06/2024 completed omeprazole 40 mg capsule,delayed release TAKE 1 CAPSULE BY MOUTH TWICE A DAY 08/06/2024 completed doxycycline hyclate 100 mg capsule TAKE 1 CAPSULE BY MOUTH TWICE A DAY FOR 14 DAYS 08/06/2024 completed Encounters Encounter Type Encounter Reason Primary Diagnosis Location Date Ambulatory [facility] 08/06/2024 [facility]ulatory [facility] 08/06/2024 [facility]ulatory [facility] 08/06/2024 Ambulatory [facility] 04[facility]23[facility]2024 [facility]23 Care Team Organization Name Specialty Phone Email Start Date End Da te [facility] 2024 [facility] 05/16/2023 024 [facility] 12/13
--- OUTSIDE RECORDS SUMMARY | 2024-09-27 17:35 | XMS_ITS | Clinical Summary ---
Author Organization [facility] Address [address] [place] [address] Care Team Providers Care Family Program Specialist Name Role Phone Garima Watt APRN Primary Care Provider [phone] Allergies No known active allergies Medications Medication Sig Dispensed Refills Start Date End Date Status NUTRITIONAL SUPPLEMENTS PO Take by mouth. 0 Active omeprazole (PriLOSEC) 40 MG capsule TAKE 1 CAPSULE BY MOUTH EVERY DAY BEFORE A MEAL 0 01/18/2023 Active Active Problems Problem Noted Date Diagnosed Date Interstitial lung disease 02/14/2023 Hypersensitivity pneumonitis 02/14/2023 Immunizations Name Administration Dates Next Due Td (TDVAX) 7 Yrs and older 04/13/2006 Social History Tobacco Use Types Packs/Day Years Used Date Smoking Tobacco: Never Assessed Sex and Gender Information Value Date Recorded Sex Assigned at Not on file Gender Identity Not on file Sexual Orientation Not on file Job Start Date Occupation Industry Not on file Not on file Not on file Last Filed Vital Signs Vital Sign Reading Time Taken Comments Blood Pressure 110/74 02/14/2023 2:16 PM EDT Pulse 102 02/14/2023 2:10 PM EDT Temperature 36.6 ??C (97.9 ??F) 01/24/2023 2:54 PM ED T Respiratory Rate - - Oxygen Saturation 98% 02/14/2023 2:10 PM EDT Inhaled Oxygen Concentration - - Weight 49.9 kg (110 lb) 02/14/2023 2:16 PM EDT Height 172.7 cm (5' 8 ) 01/10/2023 10:32 AM EDT Body Mass Index 16.73 01/10/2023 10:32 AM EDT Plan of Treatment Health Maintenance Due Date Last Done Comments Hepatitis C Screening 1960 COVID-19 Vaccine (#1) 1959 Pneumococcal Vaccine (1 of 2 - PCV) 1965 Pneumococcal Vaccine (1 of 2 - PCV) 1965 Depression Screening 1971 Preventative Health Evaluation 1977 Colon Cancer Screening (Colonoscopy) 01/30/2004 DTap / Tdap / Td (1 - Tdap) 04/14/2006 04/13/2006 Breast Cancer Screening (Mammogram) 2009 Shingrix-Zoster Vaccine (1 of 2) 2009 Cervical Cancer Screening (P ap Smear) 11/11/2015 11/10/2012 RSV Adult > 60+ Yrs or Pregn ant (1 - Risk 60-74 years 1-dose series) 2019 Fall Risk Assessment 01/30/2024 Osteoporosis Screening (DEXA Scan) 01/30/2024 Influenza Vaccine (#1) 2024 Hepatitis B Vaccines Aged Out No long er eligible based on patient's age to complete this topic RSV Ped < 20 months Aged Out No longe r eligible based on patient's age to complete this topic Care Teams Family Program Specialist Relationship Specialty Start Date End Date Garima Watt APRN PCP - General Family Medicine 01/21/23
== END 2024-09-27 15:03 | disposition home or self-care (01) ==
LOC: HO.CT 15:02
PROVIDERS: Visit Provider Hospitalist
DX: J84.9 Interstitial pulmonary disease, unspecified (principal); R91.1 Solitary pulmonary nodule
CPT/HCPCS: 71250

== ENCOUNTER → 2024-09-27 15:04 | Outpatient (BNV) | payer OTHER, SELFPAY | PROVIDERS: Visit Provider Radiology Neuroradiology | DX: R91.1 Solitary pulmonary nodule (principal) | CPT/HCPCS: 71250 ==

== ENCOUNTER 2024-10-29 14:36 | Outpatient (AMB) | payer OTHER, SELFPAY ==
[2024-10-29 14:40] VITALS: BP 140/74; PULSE 82; O2SAT 99; BMI 18.1
--- NOTE | 2024-10-29 14:40 | A.OFFVIS_ITS ---
Vital Signs 10/29/24 14:40 Height 5 ft 8 in Weight 119 lb 0.794 oz BMI 18.1 BP 140/74 H Blood Pressure Location Rt brachial Position Sitting Pulse 82 Pulse Source Pulse Oximeter Pulse Oximetry (%) 99 Oxygen Delivery Method Room Air Intake Visit Reasons: Dyspnea Allergies Contrast Dye Adverse Reaction (Severe, Uncoded 04/23/24 14:56) Anaphylaxis HPI Comments Details: The patient is a 64 year woman who was previously healthy until the last several months which she started developing increasing progressive dyspnea in addition to nonproductive cough. The symptoms she thought initially related to allergies and she continued to perform her activities of daily living. Ultimately his symptoms worsened. She did follow-up with her primary care doctor who sent her for a CT scan of the chest that she had at [facility]. demonstrated diffuse ground- glass opacities suggesting pneumonitis. Ultimately her symptoms worsened in her primary care doctor suggested she go to the ER. She went to [facility] where she was admitted to the hospital with acute respiratory failure. The patient did have an elevated brain atretic peptide and therefore underwent an echocardiogram demonstrating mitral valve prolapse. She was placed on oxygen. She was placed on Solu-Medrol quickly improved. The repeat CT scan there was thompson ggestive of acute hypersensitivity pneumonitis. As far as exposures she does have 2 parakeets and also a dove that she has been nursing back to health. In addition to that she does have a very she may basement. Denies any musty smells. She denies any smoking or vaping. She was discharged from the hospital and was given a slow prednisone taper. Now she is been off the prednisone since February. She is been noticing that when she goes outside to do the [employer] she started developing a cough and also has been noticing increasing chest tightness. She is concerned that her symptoms are coming back. We did review her CT scan of the chest demonstrating extensive ground-glass opacities throughout. She does have some areas of sparing. Also noted to have some scarring at the bases but no honeycombing. During the visit we did go for brief walking oximetry. The patient initially did desaturate down to about 89 % with activity. However she was talking. I did have her take some deep breaths and ambulate and she was able to maintain a pulse ox of 93% with activity. This is still low but at least she does not qualify for oxygen. Although she is been healthy from a respiratory status. Back in August she did have sinusitis that was the time that she took in the injured dove into the house. She is wondering if it could be related to an illness from the bird. Patient understands and she is been told that the birds do carry increased then there in some people become very hypersensitive to birds which is an issue of concern specially with the progression of fibrosis. will go ahead and start the patient inhaled cortical steroids to see if this provides some relief. Although may not be enough. The patient also have pulmonary function studies and have her repeat a chest x-ray. The patient will undergo blood work and then returned for further evaluation. If her symptoms happened to worsen and she needs to make sure to call for an earlier assessment. 05/12/2023 the patient is here for a pulmonary follow-up visit. The prednisone did help her. Now she weaned off. She did undergo pulmonary function studies which we personally reviewed. For some apparent reason appears that the bronchodilator numbers were actually worsen the pre bronchodilator numbers. She appears to have significant small airways disease during the post bronchodilator evaluation. Therefore, I did recommend she avoid using the albuterol inhaler for now on to wean off for sure. She does use the QVAR daily. In addition to that she does have evidence of a mild restrictive lung disease and also evidence of a moderate diffusion impairment. Explained to her that this is all related to the hyper since the pneumonitis resulting from the patient. She still has the patient. She is looking to relocate the patient with separate space. Still being exposed to on the regular basis. She also has parakeets but she is at [facility] most of her life. The patient will up her QVAR to twice a day. If she continues to have symptoms she will call me and I will send another course of low-dose prednisone to minimize the inflammatory changes. The patient will also undergo a chest x-ray. Will follow-up in 3 months. 08/11/2023 the patient is here for a pulmonary follow-up visit. The prednisone did help her significantly. Although now she is off the prednisone her symptoms getting worse. She does not feel the QVAR is hopeful. The patient unfortunately continues have the exposure to the Dove. She also has 2 parakeets. She has a hard time giving way or relocating the birds specially since the very center mental to her and 1 of them is handicapped. 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 The patient states since she can not give of the birds until likely late spring or summer. We again emphasized the need for her to use a respirator working or around the birds. She should keep him 1 area and she should also have a air. the patient understands that if the inflammation persist he can lead to potential fibrosis. Therefore she is agreeable to stay in a small dose of prednisone. I did recommend 20 mg for about 7 days and then hopefully she can taper down to 10 mg for 2 weeks, then, patient can try half a tablet if is the lowest most effective dose. If not she should continue on the 10 mg tablet will follow-up with a CT scan in the coming months. And she will follow-up after the CAT scan to review the CT scan and to assess her symptoms. 12/19/2023 the patient is here for a pulmonary follow-up visit. The patient was fairly well until she was exposed to significant amount of patient droppings and then there. Apparently she was evaluating home for her patient when the patient was exposed to an open cage with significant amount of dander. After that she started developing some chest tightness heaviness and chest congestion. She felt the crackles in the crepitations of her lungs. She did call the office in the patient ultimately started prednisone. Although the prednisone help with her breathing cause her some GI adverse effects some reflux symptoms and some GI upset. The patient now is taking prednisone 10 mg daily. Seems like the crepitations are significantly better. Although, she is concerned about lowering of the lungs. The patient is motivated to find a home for the patient. In the meantime we will try to decrease prednisone some specially since her respiratory exam is reassuring. She still has some minimal crackles in the right base. We can try to decrease it to 10 mg every other day to try to minimize some of the GI adverse effects. I also give from [place] that she can take as needed. She did have a CT scan back in September which is reassuring so therefore believe that we need to do any additional imaging right now. In addition to the chest tightness the patient did describe some congestion. Therefore would not be unreasonable just to treat her for psittacosis with some doxycycline. 04/23/2024 the patient is here for a pulmonary follow-up visit. Overall she is doing okay from a respiratory status. She has been off the prednisone which is reassuring. The patient now does not have the patient in her home. She did place skilled nursing. She does visit the patient regularly. At times she is concerned about the care and she would like to take the patient back home. She understands however she has a very serious hypersensitivity reaction to the patient and is extremely dangerous to do so. I did reassure her that a lot of the hyper sensitivity changes are pneumonitis. No significant scarring that has evolved. We did go for brief walking oximetry today and her oxygen levels are excellent. Denies any wheezing or any significant coughing at this time. 10/29/2024 the patient is here for pulmonary follow-up visit overall she is doing better. She did visit the pigeon several weeks ago and right after that she noticed her breathing got worse. But now is back to close to her baseline. She understands that she is significantly hypersensitive to the burden will try to also now maintain more distance since the birds doing better at the same sure. In the meantime she does have nasal congestion. Significant obstruction of the nasal passages which she needs to breathe through her nose. She does want to take any medications and she is taking or considering taking or remedies. At this time we did talk about potential holistic approach by using a Neti bottle with distilled water. She will try that out I did give her bottom and did instructed to use only distilled water with the packets. The patient also has a little lesion in the turbinate on the right that is bleeding so therefore will give her some Bactroban to help with infection. The patient also would like to avoid steroids while send him an Astelin nasal spray as far as allergic spray for the nose. Although her allergy testing when they were checked sometime before they were all negative. The patient did have a CT scan of the chest which we personally reviewed. All the nodules appear to be stable 1 nodule that may be looked a little bit increasing size but extremely small. The patient also has calcifications of the coronary arteries. She also has a little bit of emphysema. Based on the calcifications of the coronary arteries the patient does have some dyspnea symptoms will have her get an EKG. Patient should also consider having a stress test or cardiology evaluation. Patient follow-up in 6 months if she has any issues prior to this she will call for an earlier assessment. [facility] Medical History (Updated 11/01/24 @ 21:15 by Carlton Nobles MD) Coronary artery calcification seen on CAT scan Pulmonary nodule Bird breeder's lung Mitral valve prolapse ILD (interstitial lung disease) Pneumonitis Social History Patient Tobacco Use Status: Never used Tobacco Review of Systems Const Denies chills, Denies fatigue, Denies fever(s), Denies weight gain and Denies weight loss Eyes Denies change in vision ENT Reports nasal congestion, Reports nasal discharge and Reports nasal obstruction Card Denies chest pain, Denies leg edema, Denies lightheadedness, Denies palpitations, Denies dyspnea on exertion, Denies orthopnea and Denies other Resp Reports chest congestion, Reports cough, Denies dyspnea on exertion and Denies wheezing GI Denies hematochezia and Denies change in stool character Musc Denies abnormal gait, Denies muscle weakness, Denies numbness, Denies radiating pain into limb and Denies tingling Skin/Breast Denies rash Neuro Denies abnormal gait, Denies numbness and Denies tingling Endo Denies fatigue and Denies palpitations Amando/Lymph Denies lymphadenopathy Aller/Immun Denies wheezing Physical Exam Vital Signs: Last Vital Signs Pulse 82 10/29/24 14:40 BP 140/74 H 10/29/24 14:40 Pulse Ox 99 10/29/24 14:40 Oxygen Delivery Method Room Air 10/29/24 14:40 BMI result Body Mass Index 18.1 Const General: comfortable HEENT Head: Yes normocephalic Neck Neck: Yes supple Chest Chest palpation & inspection: normal inspection of the chest Resp Effort & Inspection: normal respiratory effort Auscultation: no rales and diminished lung sounds Cardio Rate: regular rate Rhythm: regular rhythm Heart sounds: S1 normal heart sound present, S2 normal heart sound present and no murmurs GI Palpation (GI): Soft to palpation Skin General skin exam: no rashes or lesions noted Extrem General: Yes no clubbing, cyanosis or edema Assessment & Plan Assessment & Plan (1) Pneumonitis: Code(s): J18.9 - Pneumonia, unspecified organism Category: Medical (2) ILD (interstitial lung disease): Code(s): J84.9 - Interstitial pulmonary disease, unspecified Category: Medical (3) Mitral valve prolapse: Code(s): I34.1 - Nonrheumatic mitral (valve) prolapse Category: Medical (4) Bird breeder's lung: Code(s): J67.2 - Bird fancier's lung Category: Medical (5) Pulmonary nodule: Code(s): R91.1 - Solitary pulmonary nodule Category: Medical (6) Coronary artery calcification seen on CAT scan: Code(s): I25.10 - Atherosclerotic heart disease of [place] coronary artery without angina pectoris Category: Medical Plan Avoid exposure to the birds. The patient is not ready to relocate the birds. She will use a repirator around them and use an air purifier in the mean time start neti bottle with distilled water and pacjet start astelin nasal spray EKG consider a cardiac eval CT chest in 6-12 months F/U 6 months Orders: Orders ECG 12 lead EKG 10/29/24 J44.9 - Chronic obstructive pulmonary disease, unspecified Medications: New mupirocin 2% 1 appl topical BID 15 grams 0RF 10 days azelastine administer into each nostril 2 sprays intranasal BID 30 mL 6RF 30 days Coding Level of Care Code Est Pt Level 4 (32923) Complex EM visit Add On G2211 Diagnoses Pneumonitis J18.9 ILD (interstitial lung disease) J84.9 Mitral valve prolapse I34.1 Bird breeder's lung J67.2 Pulmonary nodule R91.1 Coronary artery calcification seen on CAT scan I25.10 Time Spent (min) 18
--- OUTSIDE RECORDS SUMMARY | 2024-10-29 14:52 | XMS_ITS | Clinical Summary ---
Author Organization [facility] Address [address] [place] [address] Care Team Providers Care Byproducts Extractor Name Role Phone Garima Watt APRN Primary Care Provider [phone] Allergies No known active allergies Medications Medication [...] age to complete this topic Care Teams Byproducts Extractor Relationship Specialty Start Date End Date Garima Watt APRN PCP - General Family Medicine 01/21/23
== END 2024-10-29 15:25 | disposition home or self-care (01) ==
LOC: HO.HPS 14:37
PROVIDERS: Visit Provider Hospitalist
DX: J18.9 Pneumonia, unspecified organism (principal); I34.1 Nonrheumatic mitral (valve) prolapse; J67.2 Bird fancier's lung; R91.1 Solitary pulmonary nodule; I25.10 Atherosclerotic heart disease of native coronary artery without angina pectoris
CPT/HCPCS: 99214

== ENCOUNTER 2025-04-26 15:00 | Outpatient (AMB) | payer MEDICARE, OTHER, SELFPAY ==
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
[2025-04-26 15:14] VITALS: BP 162/82; PULSE 70; O2SAT 96; BMI 17.4
--- OUTSIDE RECORDS SUMMARY | 2025-04-26 17:55 | XMS_ITS ---
Author Name [facility] Organization Unknown History of Medication Use Medication Directions Dispensed Refills Start Date End Date Stat us omeprazole (PriLOSEC) [address] capsule TAKE 1 CAPSULE BY MOUTH EVERY DAY BEFORE A MEAL 01/18/2023 02/21/2025 aborted doxycycline hyclate 100 mg capsule TAKE 1 CAPSULE BY MOUTH TWICE A DAY FOR 14 DAYS 08/06/2024 completed famotidine 40 mg tablet TAKE 1 TABLET BY MOUTH EVERYDAY AT BEDTIME 08/06/2024 completed omeprazole 40 mg capsule,delayed release TAKE 1 CAPSULE BY MOUTH TWICE A DAY 08/06/2024 completed prednisone 10 mg tablet TAKE 2 TABLETS BY MOUTH DAILY FOR 30 DAYS 08/06/2024 completed nut.tx.comp. immune systm,reg (NUTRITIONAL SUPPLEMENTS PO) Take by mouth. activ e Allergies Allergen Reaction Severity Comment Documented Date Source Statu s IODINATED CONTRAST MEDIA 02/21/2025 CT_T HSFRAN active Problems Problem Status Onset Date Problem Type Date of Resolution Source Hypertension active 2013-12-[address] [facility] SFRAN Interstitial lung disease ([facility] V24, [facility] V28) active 2023-02-14 ProblemAct [facility]_THSFRAN Nephrolithiasis active 2013-12-[address] _THSFRAN Polycythemia active 2013-12-[address] Problem[address] [facility] SFRAN Left wrist pain active EncounterDiagnosisAct CT_THSFRAN Hypersensitivity pneumonitis ([facility] V24, [facility] V28) active 2023-02-14 ProblemAct [facility]_THSFRAN Immunizations Vaccine Date Source Lot Number Status Td Tetanus diptheria (Tdvax) 7yo and older 04/13/2006 [facility]_T HSFRAN completed Encounters Encounter Type Encounter Reason Primary Diagnosis Location Date Ambulatory [facility]2025 Ambulatory new patient [facility] in other specified circumstances [facility] 02/21/2025 Ambulatory [facility] 08/06/2024 Amb[facility]24 [facility]23 Care Team Organization Name Specialty Phone Email Start Date End Da [place] [facility]2025 [facility] 02/21/2025 [facility] 08/18/2024 [facility] 05/16/2023 [id number] [facility] 01/01/2023
--- OUTSIDE RECORDS SUMMARY | 2025-04-26 17:55 | XMS_ITS | Clinical Summary ---
Author Organization [facility] Address [address] [place] [address] Care Team Providers Care Social Worker Masters Name Role Phone Garima Watt APRN Primary Care Provider [phone] Allergies No known active allergies Medications Medication [...] 102 02/14/2023 2:10 PM EDT Temperature 36.6 C (97.9 F) 01/24/2023 2:54 PM EDT Respiratory Rate - - Oxygen Saturation 98% [...] 2009 Shingrix-Zoster Vaccine (1 of 2) 2009 RSV Adult > 60+ Yrs or Pregn ant (1 - Risk 60-74 years 1-dose series) 2019 Fall Risk Assessment 01/30/2024 Osteoporosis Screening (DEXA Scan) 01/30/2024 Influenza Vaccine (#1) 2025 Hepatitis B Vaccines Aged Out No long er eligible based on patient's age to complete this topic RSV Ped < 20 months Aged Out No longe r eligible based on patient's age to complete this topic Care Teams Social Worker Masters Relationship Specialty Start Date End Date Garima Watt APRN PCP - General Family Medicine 01/21/23
--- OUTSIDE RECORDS SUMMARY | 2025-04-26 17:55 | XMS_ITS | Data Portability ---
[facility], autoContract - [facility] Address [address] [place] [id number] Assessment No assessment recorded. Plan of Treatment [...] Details Recorded Time Hypersens itivity pneumonit is [id number] Active 2022 Hypersensi tivity pneumoniti s; [id number] ption: Hypersensi tivity pneumoniti s; [id number] iption: Hypersensi tivity pneumoniti s; ; Not Available [facility] 11:09:44 Interstit ial lung disease [id number] Active 2022 Interstiti al lung disease; [id number] ption: Interstiti al lung disease; [id number] iption: Interstiti al lung disease; dlname: Watt; dfname: Garima; Physician_ Suffix: RESOURCE ANALYST; Physician_ Phone: tel:[phone]; Physician_ Fax: fax:[phone]; Physician_ Specialty: Family Medicine; Physician_ Addr1: [facility]; Physician_ Addr2: [facility]; Physician_ City: [place]; Physician_ State: [place]; Physician_ PostalCode : 91000; ; Not Available [facility] 11:09:46 Problem Notes None recorded. Medical Equipment [...] preservative free, adsorbed 6 completed Not Available [facility] 08/23/2024 11:41:04 Past Encounters Encounter ID Performer Location Encounter Start Date Encounter Closed Date Diagnosis/Indication Diagnosis SNOMED-CT Code Diagnosis ICD10 Code Diagnosis IMO Codes Diagnosis Note [id number] Garima Watt APRN [id number] A_PCP [address] [place] [id number] 08/06/2024 14:10:48 08/06/2024 14:50:46 Health Concerns Section Related Observation LastModified by Organization Detai ls LastModified Time None Recorded Concern Status LastModified by Organization Details LastModified Time None Recorded Advance Directives Directive None Recorded Payers Insurance Date Sequence Insurance Name Policy Number Policy Pedraza Covered Member ID Pedraza Member ID Guarantor Name 08/06/2024 1 [employer] [id number] Gabriela Truong [id number] Gabriela Truong OBGyn Episode No OBEpisode recorded.
--- OUTSIDE RECORDS SUMMARY | 2025-04-26 17:55 | XMS_ITS | Clinical Summary ---
Author Organization [facility] [place] [address] Building Address [address] [place] [address] Phone Care Team Providers Care [employer] Name Role Phone Lalita Javier Primary Care Provider [phone] Allergies Active Allergy Reactions Criticality Noted Date Comments Iodinated Contrast Media 02/21/2025 Medications nut.tx.comp. immune systm,reg (NUTRITIONAL SUPPLEMENTS PO) Take by mouth. Active Active Problems Problem Noted Date Diagnosed Date Hypersensitivity pneumonitis (CMS/HCC V24, CMS/H CC V28) 02/14/2023 Interstitial lung disease (CMS/HCC V24, CMS/HCC V28) 02/14/2023 Hypertension 12/24/2013 Overview (02/21/2025): Echo 06/07/13, normal study with normal LV size and function and no valvular heart disease, EKG 05/07/[address] T changes, treadmill exercise test 07/05/13 negative for angina but positive by EKG criteria for ischemia without arrhythmia, good exercise capacity Nuclear stress scan 07/19/13, results not in transferred records, 05/07/13: Urinary catecholamines norepinephrine and epinephrine normal. Nephrolithiasis 12/24/2013 Overview (02/21/2025): Stone left kidney. Sees [facility] in 1992. Polycythemia 12/24/2013 Overview (02/21/2025): Intermittent, sees Dr. Chang Resolved Problems Problem Noted Date Diagnosed Date Resolved Date Memory change 12/24/2013 02/21/2025 Hemorrhoid 12/24/2013 02/21/2025 Overview (02/21/2025): Incidental finding on colonoscopy Encounters Date Type Department Care Team Description 04/18/2025 2:00 PM EDT Office Visit [facility] [address] [place] [address] Lalita Javier PA Medicare annual wellness visit, initial (Primary Dx); Left wrist pain 02/21/2025 2:00 PM EDT Office Visit [facility] [address] [place] [address] Lalita Javier PA Encounter to establish care (Primary Dx); Breast cancer screening declined; Colon cancer screening declined from Last 3 Months Immunizations Immunization Administration Dates Next Due Td Tetanus diptheria [...] not in transferred records, 05/07/13: Urinary catecholamin* Memory change 12/24/2013 Hemorrhoid 12/24/2013 Incidental findi ng on colonoscopy Family History Medical History Relation Name Comments [...] Sign Reading Time Taken Comments Blood Pressure 139/83 04/18/2025 2:00 PM EDT Pulse 76 04/18/2025 2:00 PM EDT Temperature 36.7 C (98.1 F) 04/18/2025 2:00 PM EDT Respiratory Rate - - Oxygen Saturation 96% 04/18/2025 2:00 PM EDT Inhaled Oxygen Concentration - - Weight 50.8 kg (112 lb) 04/18/2025 2:00 PM EDT Height 170.2 cm (5' 7 ) 04/18/2025 2:00 PM EDT Body Mass Index 17.54 04/18/2025 2:00 PM EDT Plan of Treatment Upcoming Encounters Date Type Department Care Team (Late st Contact Info) Description 01/23/2026 2:00 PM EDT Office Visit Internal Medicine - [facility] [address] [place] [address] Lalita Javier PA [address] [place] [address] Health Maintenance Due Date Last Done Comments Breast Cancer Screening 1960 Colorectal Cancer Screening: Colonoscopy 1960 Pneumococcal Vaccine: 50+ Ye ars (1 of 1 - PCV) 2009 Zoster Vaccines (1 of 2) 2009 DTaP,Tdap,and Td Vaccines (2 - Td or Tdap) 04/13/2016 04/13/2006 Cholesterol Screening (Lipid Panel) 08/17/2023 Hepatitis C Screening 08/17/2023 Hypertension/CHF/CAD Annual BMP Blood Test 08/17/2023 Osteoporosis Screening (Bone Density Screening) 08/17/2023 Social Influencers of Health Screening 08/17/2023 COVID-19 Vaccine (1 - 2023-2 5 season) 2025 Influenza Vaccine (#1) 2025 Falls Risk Assessment 04/18/2026 04/18/2025 Medicare Annual Wellness Visit 04/18/2026 04/18/2025 RSV Immunization Adult Patie nts (1 - 1-dose 75+ series) 2034 Depression Screening Completed 04/18/2025 HIB Vaccines Aged Out No longer eligi [...] age to complete this topic Meningococcal B Vaccine Aged Out No l onger eligible based on patient's age to complete this topic RSV Immunization Patients Un wilbur 20 months Aged Out No longer eligible b ased on patient's age to complete this topic Varicella Vaccines Aged Out No longer eligible based on patient's age to complete this topic Insurance MEDICARE AET[employer] MEDICARE ADVANTAGE Care Teams [employer] Relationship Specialty Start Date End Date Lalita Javier PA [address] [place] [address] PCP - General Family Medicine 02/21/25
== END 2025-04-26 15:53 | disposition home or self-care (01) ==
LOC: HO.HPS 15:00
PROVIDERS: Visit Provider Hospitalist
DX: J18.9 Pneumonia, unspecified organism (principal); J84.9 Interstitial pulmonary disease, unspecified; I34.1 Nonrheumatic mitral (valve) prolapse; J67.2 Bird fancier's lung; R91.1 Solitary pulmonary nodule; I25.10 Atherosclerotic heart disease of native coronary artery without angina pectoris
CPT/HCPCS: 99214; G2211

== ENCOUNTER → 2025-04-26 15:00 | Outpatient (BNVA) | payer MEDICARE, SELFPAY | PROVIDERS: Visit Provider Hospitalist | DX: I34.1 Nonrheumatic mitral (valve) prolapse (principal); J18.9 Pneumonia, unspecified organism; J67.2 Bird fancier's lung; R91.1 Solitary pulmonary nodule; I25.10 Atherosclerotic heart disease of native coronary artery without angina pectoris; R06.02 Shortness of breath | CPT/HCPCS: 99212 ==